=== PATIENT | male | born 1970 | race Two or more races ===

== ENCOUNTER 2019-04-12 12:33 | Emergency (ER) | payer SELFPAY ==
[~2019-04-12] VITALS: Ht 160 cm; Wt 83.9 kg
[2019-04-12 12:37] VITALS: BP 147/84
[2019-04-12] MEDS ORDERED: KETOROLAC TROMETHAMINE INJ 30 MG/ML VIAL ONE (12:52)
[2019-04-12] MEDS ORDERED: KETOROLAC TROMETHAMINE INJ 30 MG/ML VIAL IM ONE (13:00)
== END 2019-04-12 13:44 | disposition home or self-care (01) ==
LOC: ER 12:34
DX: S82.092A Other fracture of left patella, initial encounter for closed fracture (principal); S16.1XXA Strain of muscle, fascia and tendon at neck level, initial encounter; S39.012A Strain of muscle, fascia and tendon of lower back, initial encounter; E11.9 Type 2 diabetes mellitus without complications; I10 Essential (primary) hypertension; Z95.818 Presence of other cardiac implants and grafts; V49.49XA Driver injured in collision with other motor vehicles in traffic accident, initial encounter; Y93.89 Activity, other specified; Y92.413 State road as the place of occurrence of the external cause; Y99.8 Other external cause status
CPT/HCPCS: 29505; 73564; 96372; 99283; J1885